=== PATIENT | male | born 1980 | race Caucasian/White ===

== ENCOUNTER 2016-06-28 15:34 | Emergency (ER) | payer SELFPAY ==
[2016-06-28 15:45] VITALS: BP 122/84
[2016-06-28] MEDS ORDERED: XYLOCAINE 1% MPF 5 mL ONE (15:46)
[2016-06-28] MEDS ORDERED: NACL 0.9% IR ONE (15:50)
[2016-06-28] MEDS ORDERED: BOOSTRIX IM ONE (15:50)
[2016-06-28] MEDS ORDERED: XYLOCAINE 1% MPF 5 mL INFILTRATI ONE (15:50)
[2016-06-28] MEDS ORDERED: MOTRIN PO ONE (15:50)
--- NOTE | 2016-06-28 17:19 | Emergency Department Report ---
Entered by ANABELLA CHEN, acting as scribe for FELIPA LOMAS PA. ED Laceration HPI - HPI Chief Complaint: Wound/Laceration Stated Complaint: CUT FINGER ON GLASS Time Seen by Provider: 06/28/16 15:49 Occurred When: Today ([employer]) Location: Upper Extremity (left top of index finger) Severity: moderate (7/10) Tetanus Status: Not up to Date Laceration Symptoms: Yes Pain (pain to affected area on left index finger), No Foreign Body Sensation, No Numbness, No Weakness Other History: 36 y/o male with a PMHx of cancer presents to the ED c/o a laceration to top of left index finger that began this afternoon [employer]. Patient states he cut his finger while using a jagged edge knife. Rates pain a 7/10 in severity. Associated symptoms include bleeding from affected area, but he denies numbness, tingling, weakness, fever, chills, nausea, and vomiting. Not UTD with tetanus. NKDA. ED Review of Systems ROS: Stated complaint: CUT FINGER ON GLASS Other details as noted in HPI Comment: All other systems reviewed and negative Constitutional: no symptoms reported. denies: chills, fever, weakness, other ( tingling) Respiratory: no symptoms reported Cardiovascular: denies: chest pain, palpitations, edema, syncope Endocrine: no symptoms reported Gastrointestinal: denies: nausea, vomiting Skin: other (laceration to top of left index finger with associated pain and bleeding). denies: rash ED Past Medical Hx - Past Medical History Previous Medical History?: Yes Hx of Cancer: Yes (Acute Lymphocytic Leukemia) - Surgical History Past Surgical History?: Yes Additional Surgical History: RIGHT KNEE - Family History Family history: hypertension - Social History Smoking Status: Current Every Day Smoker Substance Use Type: Alcohol - Medications Home Medications: Home Medications Medication Instructions Recorded Confirmed Last Taken Type Cephalexin [Keflex] 500 mg PO Q8HR #15 cap 06/28/16 Unknown Rx Ibuprofen [Motrin] 600 mg PO Q8H PRN #15 tablet 06/28/16 Unknown Rx Laceration Physical Exam - Exam General: Vital signs noted. No distress. Alert and acting appropriately. General: well nourished, well developed, nontoxic in appearance, in no acute distress Head: Normocephalic, atraumatic MSK: Range of motion to all extremity to include injured finger. No deformities noted. Test 5/5 movement Neck: Supple. Nontender to palpation. Full range of motion no lymphadenopathy Eyes: Bilateral EOM intact. Normal accommodation. Lungs: Clear to auscultation bilaterally, no rhonchi, wheezes, or rales. Normal work of breathing. Extremities: No CCE. +2 pulses. No neurovascular compromise. Cardiovascular: S1-S2, regular rate, regular rhythm. No murmurs. Skin: One centimeters superficial laceration to left index finger. No bleeding noted. Psych: Normal mood and behavior Wound Length (cm): 1 Laceration Location: Upper Extremity (top of left index finger) Laceration Exam: Yes Normal Distal CMS, No Foreign Body, No Exposed Tendon, Vessel, or Nerve, No Tendon Injury ED Course Vital Signs 06/28/16 15:43 Temperature 98.6 F Pulse Rate 96 H Respiratory 16 Rate Blood Pressure 122/84 O2 Sat by Pulse 97 Oximetry - Reevaluation(s) Reevaluation #1: 06/28/16 17:15 given Motrin 800 mg in emergency room for finger pain. - Laceration /Wound Repair Right Distal Dorsal Finger Wound Location: upper extremity (right index finger distal) Wound Length (cm): 1 Wound's Depth, Shape: superficial, irregular, stellate Wound Explored: clean Irrigated w/ Saline (ccs): 250 (also soaked) Betadine Prep?: Yes Anesthesia: 1% Lidocaine Volume Anesthetic (ccs): 2 Wound Debrided: moderate Wound Repaired With: sutures Suture Size/Type: 4:0, nylon Number of Sutures: 7 Layer Closure?: No Sterile Dressing Applied?: Yes (tolerated procedure well) ED Medical Decision Making - Medical Decision Making ED course: Patient with laceration to right left index finger. Finger injury. Status post repair with sutures. See procedure note for details. She was given Motrin 800 mg in emergency room to manage finger pain. I discussed with him that it is important for him to keep affected area clean and dry to prevent infection and to keep dressing on for 24 hours. I also discussed with him he needs to return in 7 days to have stitches removed from finger. Patient receive strict 0.5 and emergency room to update tetanus. Discharged home in stable condition with prescription for Motrin and Keflex. Critical care attestation.: If time is entered above; I have spent that time in minutes in the direct care of this critically ill patient, excluding procedure time. ED Disposition Clinical Impression: Laceration of finger Qualifiers: Encounter type: initial encounter Qualified Code(s): S61.219A - Laceration without foreign body of unspecified finger without damage to nail, initial encounter Finger injury Qualifiers: Encounter type: initial encounter Laterality: right Qualified Code(s): S69.91XA - Unspecified injury of right wrist, hand and finger(s), initial encounter Disposition: DISCHARGED TO HOME OR SELFCARE Is pt being admited?: No Does the pt Need Aspirin: No Condition: Stable Instructions: Suture Care (ED), Finger Laceration (ED) Additional Instructions: return to the emergency department to have sutures removed in 7 days. Take antibiotic as prescribed Keep Affected area clean and dry Prescriptions: Cephalexin [Keflex] 500 mg PO Q8HR #15 cap Ibuprofen [Motrin] 600 mg PO Q8H PRN #15 tablet PRN Reason: Pain Referrals: PRIMARY CARE,MD [Primary Care Provider] - 3-5 Days [facility] [Outside] - 3-5 Days Forms: Work/School Release Form(ED) This documentation as recorded by the GUSTAVO johns JASMINE,accurately reflects the service I personally performed and the decisions made by ,FELIPA LOMAS PA.
== END 2016-06-28 17:07 | disposition home or self-care (01) ==
LOC: ED 15:34
DX: S61.211A Laceration without foreign body of left index finger without damage to nail, initial encounter (principal); F17.200 Nicotine dependence, unspecified, uncomplicated; W25.XXXA Contact with sharp glass, initial encounter; Y93.89 Activity, other specified; Y99.8 Other external cause status; Y92.89 Other specified places as the place of occurrence of the external cause
CPT/HCPCS: 90471; 90715

== ENCOUNTER 2017-01-14 08:34 | Emergency (ER) | payer OTHER ==
[2017-01-14 09:27] VITALS: BP 125/90
[2017-01-14] MEDS ORDERED: NORCO 10/325 ONE (10:49)
[2017-01-14] MEDS ORDERED: NORCO 5/325 PO ONE (10:54)
[2017-01-14] MEDS ORDERED: KEFLEX PO ONE (10:54)
[2017-01-14] MEDS ORDERED: BOOSTRIX IM ONE (10:55)
--- NOTE | 2017-01-14 10:57 | Emergency Department Report ---
Abscess Boil HPI - HPI Chief Complaint: Extremity Injury, Upper Stated Complaint: PAING TO LERFT HAND/RT FOOT Time Seen by Provider: 01/14/17 09:36 Duration: 4 Days (injury to left fourth finger and a right second toe) Location: Other (right fourth finger and right second toe. Patient said he has injury to both side.) Severity: Moderate (pain to right fourth finger ate at a 10 movement and palpation better resting.) History: Yes Pain (right second toe and right fourth finger), No Fever, No Purulent Drainage, No Numbness, No Foreign Body, No Previous History, No Insect Bite HPI: Patient here complaining off left fourth finger pain after he stuck himself with metal object at work. He is also saying that he bumped his right second toe and it healed but there is areas that are hard to touch. Denies any drainage from toe. He reports drainage from left fourth finger drainage, redness and swelling. Pain is 8 on a 10. No [id number] medication taken for pain. Patient states that his tetanus shot is up-to-date but ended them there is a flag that said that he got tetanus shot in 2013 patient said that he was locked up in 2013 so there is no way he could've gotten tetanus shot. He said his tetanus shot is not up-to-date. Home Medications: Previous Rx's Medication Instructions Recorded Last Taken Type Cephalexin [Keflex] 500 mg PO Q8HR 7 Days #21 cap 01/14/17 Unknown Rx Ibuprofen [Motrin 600 MG tab] 600 mg PO Q8H PRN #15 tablet 01/14/17 Unknown Rx Allergies/Adverse Reactions: Allergies Allergy/AdvReac Type Severity Reaction Status Date / Time No Known Allergies Allergy Unverified 06/28/16 15:42 ED Review of Systems ROS: Stated complaint: NUMBNESS IN HAND AND FEET Other details as noted in HPI Comment: All other systems reviewed and negative Constitutional: no symptoms reported Respiratory: no symptoms reported Cardiovascular: denies: chest pain, palpitations, edema, syncope Gastrointestinal: denies: abdominal pain, nausea, vomiting Musculoskeletal: joint swelling, arthralgia. denies: back pain, myalgia Skin: other (swelling, redness and tenderness to left Forth finger) Neurological: denies: numbness, paresthesias, abnormal gait, vertigo ED Past Medical Hx - Past Medical History Previous Medical History?: No - Surgical History Past Surgical History?: Yes Additional Surgical History: RIGHT KNEE - Family History Family history: hypertension - Social History Smoking Status: Never Smoker Substance Use Type: Marijuana - Medications Home Medications: Home Medications Medication Instructions Recorded Confirmed Last Taken Type Cephalexin [Keflex] 500 mg PO Q8HR 7 Days #21 cap 01/14/17 Unknown Rx Ibuprofen [Motrin 600 MG tab] 600 mg PO Q8H PRN #15 tablet 01/14/17 Unknown Rx ED Abscess Boil Physical Exam - Exam General: Vital signs noted. No distress. Alert and acting appropriately. ED Course Vital Signs 01/14/17 09:24 Temperature 98.3 F Pulse Rate 60 Respiratory 18 Rate Blood Pressure 125/90 O2 Sat by Pulse 100 Oximetry Critical care attestation.: If time is entered above; I have spent that time in minutes in the direct care of this critically ill patient, excluding procedure time. ED Medical Decision Making - Medical Decision Making ED course: She is here complaining of infected finger to left fourth finger from injury 4 days ago. Also said he bumped his right second toe and it healed but it still hurts. Physical findings for cellulitis and minimal abscess to left fourth finger. Area is tender to palpate. No neurovascular compromise. Right second toe with no open area callus in her lateral distally. Nontender to palpate. No bony abnormality, tenderness or deformities. Patient with full range of motion to all his extremities. +5/5 strength in all extremities. Patient given [place] 5/325 2 tablets in the emergency room for pain and he was updated on his tetanus shot because he said he was not the one that got tetanus shot in 2013 because was in residential. Patient discharged home with prescription for Keflex and Motrin and to follow-up with primary care physician in 4 days and if he doesn't have one he can return to the emergency room or follow-up at [facility]. He was understanding the discharge instruction and treatment plan ED Disposition Clinical Impression: Cellulitis and abscess of finger, unspecified, Arthralgia of multiple sites, bilateral, Encounter for incision and drainage procedure Disposition: TO HOME OR SELFCARE Is pt being admited?: No Does the pt Need Aspirin: No Condition: Stable Instructions: Cellulitis (ED), Abscess Incision and Drainage (ED) Additional Instructions: Take antibiotic as prescribed Follow-up with your primary care physician in 4 days and if he do not have a primary care physician please follow up with [facility] Keep affected area clean and dry. Followed apply warm compresses to affected area 3-4 times a day to facilitate drainage Follow instruction on acute wound care . Please return to emergency room if you develop increasing redness, streaking, fever, difficulty moving in and the left forearm and increase in pain. Prescriptions: Cephalexin [Keflex] 500 mg PO Q8HR 7 Days #21 cap Ibuprofen [Motrin 600 MG tab] 600 mg PO Q8H PRN #15 tablet PRN Reason: Pain Referrals: [facility] [Outside] - 01/18/17 Forms: Work/School Release Form(ED)
== END 2017-01-14 11:21 | disposition home or self-care (01) ==
LOC: ED 08:34
DX: L03.012 Cellulitis of left finger (principal); M25.50 Pain in unspecified joint; F12.10 Cannabis abuse, uncomplicated; Z98.890 Other specified postprocedural states
CPT/HCPCS: 90471; 90715